=== PATIENT | female | born 1960 | race Caucasian/White ===

== ENCOUNTER 2016-05-01 17:57 | Emergency (ER) | payer BC ==
[2016-05-01 18:02] VITALS: BP 128/72; PULSE 77; RESP 18; TEMP 98; O2SAT 97
--- NOTE | 2016-05-02 10:30 | EDPHY ---
ED Progress Note Narrative: Left without being seen.
== END 2016-05-01 19:09 | disposition left against medical advice (07) ==
LOC: CED 17:57
DX: R10.9 Unspecified abdominal pain (principal); Z53.29 Procedure and treatment not carried out because of patient's decision for other reasons

== ENCOUNTER 2016-05-02 17:38 | Emergency (ER) | payer BC ==
[2016-05-02 17:50] VITALS: RESP 16; TEMP 97.7
--- NOTE | 2016-05-02 18:03 | EDPHY ---
H & P Stated Complaint: Constipation 4 days-Xray CD to be loaded. Time Seen by Provider: 05/02/16 17:51 HPI/ROS: CHIEF COMPLAINT: Left lower quadrant abdominal pain x5 days HISTORY OF PRESENT ILLNESS: 55-year-old female history of multiple abdominal surgeries complaining of 5 days of left lower quadrant abdominal pain. She saw her primary care provider today, had an outpatient x-ray showing extensive stool and went home attempted to enemas with no resolution of symptoms. Positive radiation to back. She has continued complaints of left lower quadrant pain. No nausea or vomiting. No urinary abnormality. No fever or chills. No trauma. No known history of diverticulosis.She has been experiencing daily bowel movements have been normal. No melena or hematochezia. PRIMARY CARE PROVIDER:Dr. Martinez REVIEW OF SYSTEMS: A ten point review of systems was performed and is negative with the exception of the items mentioned in the HPI PAST MEDICAL & SURGICAL HISTORY: Uterine sling, oophorectomy SOCIAL HISTORY: nonsmoker PHYSICAL EXAM (Prior to examination, patient consented to physical exam, hands were washed and my usual and customary physical exam procedures followed) 1) GENERAL: Well-developed, well-nourished, alert and oriented. Appears to be in no acute distress. 2) HEAD: Normocephalic, atraumatic 3) HEENT: Pupils equal, round, reactive to light bilaterally. Sclera anicteric. Nasopharynx, oropharynx, clear, no lesions. 4) NECK: Full range of motion, no meningeal signs. 5) LUNGS: Clear auscultation bilaterally, no wheezes, no rhonchi, no retractions. 6) HEART: Regular rate and rhythm, no murmur, no heave, no gallop. 7) ABDOMEN: No guarding, tender to palpation left lower quadrant, negative McBurney's, negative Soliz's,negative peritoneal sign, 8) MUSCULOSKELETAL: Moving all extremities, no focal areas of tenderness, no obvious trauma. No peripheral edema or discoloration. 9) BACK: No CVA tenderness, no midline vertebral tenderness, no fluctuance, no step-off, no obvious trauma, no visual or palpable abnormality. 10) SKIN: No rash, no petechiae. 11) Psychiatric: Patient is oriented X 3, there is no agitation. DIFFERENTIAL DIAGNOSIS: in no particular include but not limited to bowel obstruction, diverticulitis, diverticular abscess, intestinal perforation, constipation - Personal History Current Tetanus/Diphtheria Vaccine: No Tetanus Vaccine Date: 2008 - Medical/Surgical History Hx Asthma: No Hx Chronic Respiratory Disease: No Hx Diabetes: No Hx Cardiac Disease: No Hx Renal Disease: No Hx Cirrhosis: No Hx Alcoholism: No Hx HIV/AIDS: No Hx Splenectomy or Spleen Trauma: No Other PMH: Bilateral meniscus repair/ bladder lift/oophrectomy/hysterectomy- ovarian cysts - Social History Smoking Status: Never smoked Constitutional: Initial Vital Signs Temperature (C) 36.5 C 05/02/16 17:46 Heart Rate 87 05/02/16 17:46 Respiratory Rate 16 05/02/16 17:46 Blood Pressure 127/100 H 05/02/16 17:46 O2 Sat (%) 94 05/02/16 17:46 O2 Delivery Mode Room Air Allergies/Adverse Reactions: Cephalosporins Allergy (Intermediate, Verified 05/02/16 17:50) Swelling/neck,face,throat Penicillins Allergy (Intermediate, Verified 05/02/16 17:50) Swelling/neck,face,throat Home Medications: Medication Instructions Recorded Hormone Replacement Therapy 1 tab PO DAILY 06/20/11 Multivitamins [Multivitamin (*)] 1 each PO DAILY 06/20/11 Peg 3350/Na Sulf,Bicarb,Cl/KCl 1,000 ml PO ONCE #4000 ml 05/02/16 [Golytely (RX)] Medical Decision Making - Diagnostics Imaging: CT Scan of the Abdomen and Pelvis (With Contrast) 1830 hours History: Abdominal pain and constipation. Decreased appetite. Technique: Axial computed tomographic images of the abdomen and pelvis were obtained with the uneventful intravenous administration of 90 mL Isovue-300 contrast. . Images were reviewed in multiple planes. Dose reduction techniques were utilized. CT Abdomen and Pelvis Findings: Comparison the prior CT study of 06/17/2011. Lung bases: Normal. Liver: Normal. Spleen: Normal. Gallbladder and Bile Ducts: Normal. Pancreas: Normal. Adrenals: Normal. Kidneys: No obstruction or solid masses. Abdominal Aorta: No aneurysm. Pelvic structures: Normal Bladder: Normal. Appendix: Normal. Bowel Loops: Normal. No bowel obstruction, ascites, or significant retroperitoneal lymphadenopathy. Skeletal system: Vertebral body heights are well-maintained. There are no significant lytic or sclerotic osseous lesions. Moderate to marked degenerative disk disease is once again noted more prominent toward the right side of L4-L5 and diffusely at L5-S1. There is moderate disk bulge that is stable at L4-L5 with moderate spinal stenosis and bilateral neural foraminal stenosis. Impression: 1. Normal CT abdomen and pelvis with contrast enhancement. 2. No CT evidence of appendicitis, abscess or bowel obstruction. 3. Stable degenerative disk disease lower lumbar spine. Findings were discussed by telephone with Richie Tucker PA-C at 1900 hrs. Dictated By: Harrison Bonilla MD Images reviewed by myself ED Course/Re-evaluation: 6:03 p.m.: Patient has focal tenderness left lower quadrant. Will evaluate patient for diverticulitis. 7:20 p.m.: Re-evaluation, discussed her CT imaging showing no evidence of diverticulitis. Re-examined her abdomen. Unable to elicit pain on exam at this time. Plan will be discharge with GoLYTELY and my usual and customary abdominal and constipation precautions. In the meantime should she develop new or worsening abdominal pain, should she develop nausea, vomiting or any other symptoms that concern her she needs to return to the ER immediately for re -evaluation. I think that acute surgical abdominal pathology, acute appendicitis, diverticular abscess or perforation, bowel obstruction less than likely in this patient. she has a remote history of oophorectomy, doubt ovarian etiology. - Data Points Laboratory Results: Laboratory Results 05/02/16 18:11 05/02/16 18:11 05/02/16 05/02/16 05/02/16 18:11 18:11 18:10 WBC 6.07 10^3/uL 10^3/uL (3.80-9.50) RBC 4.90 10^6/uL 10^6/uL (4.18-5.33) Hgb 15.0 g/dL g/dL (12.6-16.3) POC Hgb 15.3 gm/dL gm/dL (12.3-15.9) Hct 42.7 % % (38.0-47.0) POC Hct 45 % % (35.5-47.5) MCV 87.1 fL fL (81.5-99.8) MCH 30.6 pg pg (27.9-34.1) MCHC 35.1 g/dL g/dL (32.4-36.7) RDW 12.4 % % (11.5-15.2) Plt Count 315 10^3/uL 10^3/uL (150-400) MPV 9.3 fL fL (8.7-11.7) Neut % (Auto) 58.2 % % (39.3-74.2) Lymph % (Auto) 32.0 % % (15.0-45.0) [place] % (Auto) 6.1 % % (4.5-13.0) Eos % (Auto) 2.5 % % (0.6-7.6) Baso % (Auto) 0.7 % % (0.3-1.7) Nucleat RBC Rel Count 0.0 % % (0.0-0.2) Absolute Neuts (auto) 3.54 10^3/uL 10^3/uL (1.70-6.50) Absolute Lymphs (auto) 1.94 10^3/uL 10^3/uL (1.00-3.00) Absolute Monos (auto) 0.37 10^3/uL 10^3/uL (0.30-0.80) Absolute Eos (auto) 0.15 10^3/uL 10^3/uL (0.03-0.40) Absolute Basos (auto) 0.04 10^3/uL 10^3/uL (0.02-0.10) Absolute Nucleated RBC 0.00 10^3/uL 10^3/uL (0-0.01) Immature Gran % 0.5 % % (0.0-1.1) Immature Gran # 0.03 10^3/uL 10^3/uL (0.00-0.10) POC Sodium 140 mEq/L mEq/L (134-144) Sodium 139 mEq/L mEq/L (134-144) POC Potassium 3.5 mEq/L mEq/L (3.3-5.0) Potassium 3.9 mEq/L mEq/L (3.5-5.2) POC Chloride 102 mEq/L mEq/L (96-108) Chloride 103 mEq/L mEq/L (97-110) Carbon Dioxide 23 mEq/l mEq/l (22-31) Anion Gap 13 mEq/L mEq/L (8-16) POC BUN 10 mg/dL mg/dL (7-23) BUN 10 mg/dL mg/dL (7-23) Creatinine 0.7 mg/dL mg/dL (0.6-1.0) POC Creatinine 0.6 mg/dL mg/dL (0.6-1.2) Estimated GFR > 60 Glucose 94 mg/dL mg/dL (70-100) POC Glucose 96 mg/dL mg/dL (70-100) Calcium 9.8 mg/dL mg/dL (8.5-10.4) Total Bilirubin 0.5 mg/dL mg/dL (0.1-1.4) Conjugated Bilirubin 0.3 mg/dL mg/dL (0.0-0.5) Unconjugated Bilirubin 0.2 mg/dL mg/dL (0.0-1.1) AST 30 IU/L IU/L (14-46) ALT 32 IU/L IU/L (9-52) Alkaline Phosphatase 67 IU/L IU/L (38-126) Total Protein 7.4 g/dL g/dL (6.3-8.2) Albumin 4.7 g/dL g/dL (3.5-5.0) Lipase 140.0 IU/L IU/L (23-300) Medications Given: Discontinued Medications Ibuprofen (Motrin) 600 mg PO EDNOW ONE Stop: 05/02/16 19:10 Last Admin: 05/02/16 19:10 Dose: 600 mg Point of Care Test Results: 05/02/16 18:10 POC Sodium 140 POC Potassium 3.5 POC Chloride 102 POC BUN 10 POC Creatinine 0.6 POC Glucose 96 Departure - Departure Disposition: Home, Routine, Self-Care Clinical Impression: Abdominal pain Qualifiers: Abdominal location: left lower quadrant Qualified Code(s): R10.32 - Left lower quadrant pain Constipation Qualifiers: Constipation type: unspecified constipation type Qualified Code(s): K59.00 - Constipation, unspecified Condition: Good Instructions: Constipation (ED), High Fiber Diet (ED) Additional Instructions: Return to the ER immediately if you develop new or worsening symptoms, if you develop fever, chills, worsening abdominal pain Referrals: Bran Martinez MD [Primary Care Provider] - 1 day without fail Jose Sun MD [Medical Doctor] - 2-3 days, call for appt. (Dr. Jose Sun is a acoustics teacher) Prescriptions: Peg 3350/Na Sulf,Bicarb,Cl/KCl [Golytely (RX)] 1,000 ml PO ONCE #4000 ml
[2016-05-02] MEDS ORDERED: IOPAMIDOL (ISOVUE-300) 100 ML BTL IV ONE (18:21)
[2016-05-02 18:33] LABS: % IMMATURE GRANULYOCYTES 0.5 % (0.0-1.1); ABSOLUTE IMMATURE GRANULOCYTES 0.03 10^3/uL (0.00-0.10); ADD DIFF? NO; ADD MORPH? NO; ADD SCAN? NO; ATYPICAL LYMPHOCYTE FLAG 10 (0-99); FRAGMENT RBC FLAG 0 (0-99); HEMATOCRIT 42.7 % (38.0-47.0); LEFT SHIFT FLG 0 (0-99); LIPEMIA HEMOLYSIS FLAG 90 (0-99); MEAN CELL HEMOGLOBIN 30.6 pg (27.9-34.1); MEAN CELL HEMOGLOBIN CONCENTR. 35.1 g/dL (32.4-36.7); MEAN CELL VOLUME 87.1 fL (81.5-99.8); MEAN PLATELET VOLUME 9.3 fL (8.7-11.7); PLATELET CLUMPS FLAG 0 (0-99); PLATELET COUNT 315 10^3/uL (150-400); RED CELL DISTRIBUTION WIDTH 12.4 % (11.5-15.2)
[2016-05-02 18:36] LABS: ALANINE AMINOTRANSFERASE 32 IU/L (9-52); ALBUMIN 4.7 g/dL (3.5-5.0); ALKALINE PHOSPHATASE 67 IU/L (38-126); ANION GAP 13 mEq/L (8-16); ASPARTATE AMINOTRANSFERASE 30 IU/L (14-46); BILIRUBIN,TOTAL 0.5 mg/dL (0.1-1.4); BILIRUBIN-CONJUGATED 0.3 mg/dL (0.0-0.5); BILIRUBIN-UNCONJUGATED 0.2 mg/dL (0.0-1.1); CALCIUM 9.8 mg/dL (8.5-10.4); CARBON DIOXIDE 23 mEq/l (22-31); CHLORIDE 103 mEq/L (97-110); CREATININE 0.7 mg/dL (0.6-1.0); GLOMERULAR FILTRATION RATE > 60; GLUCOSE 94 mg/dL (70-100); POTASSIUM 3.9 mEq/L (3.5-5.2); SODIUM 139 mEq/L (134-144); TOTAL PROTEIN 7.4 g/dL (6.3-8.2)
[2016-05-02] MEDS ORDERED: IBUPROFEN 600 MG TAB PO ONE ×2 (19:04→19:09)
[2016-05-02 20:18] VITALS: BP 110/70; PULSE 72; O2SAT 98
== END 2016-05-02 20:16 | disposition home or self-care (01) ==
DX: K59.00 Constipation, unspecified (principal); Z90.710 Acquired absence of both cervix and uterus
CPT/HCPCS: 82947-QW; Q9967

== ENCOUNTER 2016-05-06 16:11 | Emergency (ER) | payer BC ==
[2016-05-06 16:30] VITALS: TEMP 97.7
[2016-05-06 17:45] LABS: COLOR COLORLESS; LEUKOCYTE ESTERASE,URINE NEGATIVE (NEGATIVE); NITRITE,URINE NEGATIVE (NEGATIVE)
--- NOTE | 2016-05-06 17:49 | EDPHY ---
H & P Stated Complaint: Recurrent L sided abd pain;eval on Monday for same c/o (see notes) Time Seen by Provider: 05/06/16 17:26 HPI/ROS: CHIEF COMPLAINT: continued left lower quadrant pain HISTORY OF PRESENT ILLNESS: 56-year-old female history of multiple abdominal surgeries including oophorectomy complaining of continued left lower quadrant and intermittent left upper quadrant pain. She had similar complaints of last ER visit which point CT abdomen pelvis with IV contrast was performed which was essentially normal. She was told at her primary care provider visit earlier that day that she was constipated. After emergency department she was given GoLYTELY and has subsequent bowel movement has had continued bowel movements described as small, string like bowel movements. She does note new onset of urinary symptoms in the past 24 hours including urinary hesitancy and left flank pain. No vaginal bleeding or discharge. No fever or chills. No nausea or vomiting. Positive appetite. PRIMARY CARE PROVIDER:Dr. Martinez REVIEW OF SYSTEMS: A ten point review of systems was performed and is negative with the exception of the items mentioned in the HPI PAST MEDICAL & SURGICAL HISTORY: Oophorectomy, uterine sling SOCIAL HISTORY: nonsmoker PHYSICAL EXAM (Prior to examination, patient consented to physical exam, hands were washed and my usual and customary physical exam procedures followed) 1) GENERAL: Well-developed, well-nourished, alert and oriented. Appears to be in no acute distress. smiling, shakes my hand, laughing. 2) HEAD: Normocephalic, atraumatic 3) HEENT: Pupils equal, round, reactive to light bilaterally. Sclera anicteric. 4) NECK: Full range of motion, no meningeal signs. 5) LUNGS: Clear auscultation bilaterally, no wheezes, no rhonchi, no retractions. 6) HEART: Regular rate and rhythm, no murmur, no heave, no gallop. 7) ABDOMEN: No guarding, mild tenderness with very deep palpation left lower quadrant, negative McBurney's, negative Soliz's,negative peritoneal sign, no mass, no hernia 8) MUSCULOSKELETAL: Moving all extremities, no focal areas of tenderness, no obvious trauma. No peripheral edema or discoloration. 9) BACK: No CVA tenderness, no midline vertebral tenderness, no fluctuance, no step-off, no obvious trauma, no visual or palpable abnormality. 10) SKIN: No rash, no petechiae. DIFFERENTIAL DIAGNOSIS: My differential diagnosis includes, but is not limited to, acute appendicitis, bowel obstruction, acute pancreatitis, ovarian torsion, ectopic , gastritis and urinary tract infection. The patient understands that this diagnosis is provisional and can never be 100% accurate. This is a partial list of diagnoses considered. These considerations are based on history, physical exam, past history and reassessment. - Personal History Current Tetanus Diphtheria and Acellular Pertussis (TDAP): Yes Tetanus Vaccine Date: 2008 - Medical/Surgical History Hx Asthma: No Hx Chronic Respiratory Disease: No Hx Diabetes: No Hx Cardiac Disease: No Hx Renal Disease: No Hx Cirrhosis: No Hx Alcoholism: No Hx HIV/AIDS: No Hx Splenectomy or Spleen Trauma: No Other PMH: Bilateral meniscus repair/ bladder lift/oophrectomy/hysterectomy- ovarian cysts - Social History Smoking Status: Never smoked Constitutional: Initial Vital Signs Temperature (C) 36.5 C 05/06/16 16:20 Heart Rate 87 05/06/16 16:20 Respiratory Rate 18 05/06/16 16:20 Blood Pressure 103/88 H 05/06/16 16:20 O2 Sat (%) 98 05/06/16 16:20 O2 Delivery Mode Room Air Allergies/Adverse Reactions: Cephalosporins Allergy (Intermediate, Verified 05/06/16 16:26) Swelling/neck,face,throat Penicillins Allergy (Intermediate, Verified 05/06/16 16:26) Swelling/neck,face,throat Home Medications: Medication Instructions Recorded Hormone Replacement Therapy 1 tab PO DAILY 06/20/11 Medical Decision Making ED Course/Re-evaluation: Patient has been re-evaluated with serial examinations. She was also seen exam by Dr. Radha Kerr in the ER. Doubt UTI, doubt pyelonephritis, doubt acute surgical abdominal pathology, doubt diverticulitis, doubt bowel obstruction, doubt acute appendicitis, doubt ovarian torsion with history of oophorectomy. I do not think that repeat CT imaging currently indicated she had a CT scan performed 4 days ago and currently has abdominal examination which reveals very mild tenderness in left lower quadrant only, normal white blood cell count, patient overall appears well. She is a patient of Dr. Bran Martinez. Plan will be discharge with follow-up information referrals to on-call GI and General surgery. In the meantime usual customary abdominal precautions and instructions provided. She feels comfortable with this plan. I offered prescription for analgesia which she declined - Data Points Laboratory Results: Laboratory Results 05/06/16 17:50 05/06/16 17:50 05/06/16 05/06/16 05/06/16 17:50 17:50 17:50 WBC 5.85 10^3/uL 10^3/uL (3.80-9.50) RBC 4.79 10^6/uL 10^6/uL (4.18-5.33) Hgb 14.8 g/dL g/dL (12.6-16.3) Hct 42.1 % % (38.0-47.0) MCV 87.9 fL fL (81.5-99.8) MCH 30.9 pg pg (27.9-34.1) MCHC 35.2 g/dL g/dL (32.4-36.7) RDW 12.2 % % (11.5-15.2) Plt Count 284 10^3/uL 10^3/uL (150-400) MPV 9.4 fL fL (8.7-11.7) Neut % (Auto) 62.7 % % (39.3-74.2) Lymph % (Auto) 28.0 % % (15.0-45.0) [place] % (Auto) 6.5 % % (4.5-13.0) Eos % (Auto) 1.9 % % (0.6-7.6) Baso % (Auto) 0.7 % % (0.3-1.7) Nucleat RBC Rel Count 0.0 % % (0.0-0.2) Absolute Neuts (auto) 3.67 10^3/uL 10^3/uL (1.70-6.50) Absolute Lymphs (auto) 1.64 10^3/uL 10^3/uL (1.00-3.00) Absolute Monos (auto) 0.38 10^3/uL 10^3/uL (0.30-0.80) Absolute Eos (auto) 0.11 10^3/uL 10^3/uL (0.03-0.40) Absolute Basos (auto) 0.04 10^3/uL 10^3/uL (0.02-0.10) Absolute Nucleated RBC 0.00 10^3/uL 10^3/uL (0-0.01) Immature Gran % 0.2 % % (0.0-1.1) Immature Gran # 0.01 10^3/uL 10^3/uL (0.00-0.10) Sodium 140 mEq/L mEq/L (134-144) Potassium 3.8 mEq/L mEq/L (3.5-5.2) Chloride 106 mEq/L mEq/L (97-110) Carbon Dioxide 21 mEq/l L mEq/l (22-31) Anion Gap 13 mEq/L mEq/L (8-16) BUN 10 mg/dL mg/dL (7-23) Creatinine 0.7 mg/dL mg/dL (0.6-1.0) Estimated GFR > 60 Glucose 84 mg/dL mg/dL (70-100) Calcium 10.0 mg/dL mg/dL (8.5-10.4) Total Bilirubin 0.5 mg/dL mg/dL (0.1-1.4) Conjugated Bilirubin 0.3 mg/dL mg/dL (0.0-0.5) Unconjugated Bilirubin 0.2 mg/dL mg/dL (0.0-1.1) AST 24 IU/L IU/L (14-46) ALT 31 IU/L IU/L (9-52) Alkaline Phosphatase 69 IU/L IU/L (38-126) Total Protein 7.4 g/dL g/dL (6.3-8.2) Albumin 4.6 g/dL g/dL (3.5-5.0) Lipase 122.0 IU/L IU/L (23-300) Beta HCG, Qual NEGATIVE Urine Color Urine Appearance Urine pH Ur Specific [place] Urine Protein Urine Ketones Urine Blood Urine Nitrate Urine Bilirubin Urine Urobilinogen Ur Leukocyte Esterase Urine RBC Urine WBC Ur Epithelial Cells Urine Glucose 05/06/16 16:30 WBC RBC Hgb Hct MCV MCH MCHC RDW Plt Count MPV Neut % (Auto) Lymph % (Auto) [place] % (Auto) Eos % (Auto) Baso % (Auto) Nucleat RBC Rel Count Absolute Neuts (auto) Absolute Lymphs (auto) Absolute Monos (auto) Absolute Eos (auto) Absolute Basos (auto) Absolute Nucleated RBC Immature Gran % Immature Gran # Sodium Potassium Chloride Carbon Dioxide Anion Gap BUN Creatinine Estimated GFR Glucose Calcium Total Bilirubin Conjugated Bilirubin Unconjugated Bilirubin AST ALT Alkaline Phosphatase Total Protein Albumin Lipase Beta HCG, Qual Urine Color COLORLESS Urine Appearance CLEAR Urine pH 7.0 (5.0-7.5) Ur Specific [place] 1.002 (1.002-1.030) Urine Protein NEGATIVE (NEGATIVE) Urine Ketones NEGATIVE (NEGATIVE) Urine Blood NEGATIVE (NEGATIVE) Urine Nitrate NEGATIVE (NEGATIVE) Urine Bilirubin NEGATIVE (NEGATIVE) Urine Urobilinogen NEGATIVE EU EU (0.2-1.0) Ur Leukocyte Esterase NEGATIVE (NEGATIVE) Urine RBC 1-3 /hpf /hpf (0-3) Urine WBC 1-3 /hpf /hpf (0-3) Ur Epithelial Cells TRACE /lpf /lpf (NONE-1+) Urine Glucose NEGATIVE (NEGATIVE) Departure - Departure Disposition: Home, Routine, Self-Care Clinical Impression: Abdominal pain Qualifiers: Abdominal location: left lower quadrant Qualified Code(s): R10.32 - Left lower quadrant pain Condition: Good Instructions: Acute Abdominal Pain (ED) Additional Instructions: Seek immediate medical attention if you develop new or worsening symptoms, if you develop fevers, chills, inability to tolerate oral intake or any other symptoms that concerns you. Referrals: Bran Martinez MD [Primary Care Provider] - 05/09/16 Rico Yeung MD [Medical Doctor] - 05/09/16 (Dr. Rico Yeung is a set staff fitter ) Gerald Concepcion MD [Medical Doctor] - 05/09/16 (Dr Concepcion is a surgeon)
[2016-05-06 18:12] LABS: % IMMATURE GRANULYOCYTES 0.2 % (0.0-1.1); ABSOLUTE IMMATURE GRANULOCYTES 0.01 10^3/uL (0.00-0.10); ADD DIFF? NO; ADD MORPH? NO; ADD SCAN? NO; ATYPICAL LYMPHOCYTE FLAG 0 (0-99); FRAGMENT RBC FLAG 0 (0-99); HEMATOCRIT 42.1 % (38.0-47.0); HEMOGLOBIN 14.8 g/dL (12.6-16.3); LEFT SHIFT FLG 0 (0-99); LIPEMIA HEMOLYSIS FLAG 90 (0-99); MEAN CELL HEMOGLOBIN 30.9 pg (27.9-34.1); MEAN CELL HEMOGLOBIN CONCENTR. 35.2 g/dL (32.4-36.7); MEAN CELL VOLUME 87.9 fL (81.5-99.8); MEAN PLATELET VOLUME 9.4 fL (8.7-11.7); PLATELET CLUMPS FLAG 0 (0-99); PLATELET COUNT 284 10^3/uL (150-400); RED BLOOD CELL COUNT 4.79 10^6/uL (4.18-5.33); RED CELL DISTRIBUTION WIDTH 12.2 % (11.5-15.2)
[2016-05-06 18:30] LABS: ALANINE AMINOTRANSFERASE 31 IU/L (9-52); ALBUMIN 4.6 g/dL (3.5-5.0); ALKALINE PHOSPHATASE 69 IU/L (38-126); ANION GAP 13 mEq/L (8-16); ASPARTATE AMINOTRANSFERASE 24 IU/L (14-46); BILIRUBIN,TOTAL 0.5 mg/dL (0.1-1.4); BILIRUBIN-CONJUGATED 0.3 mg/dL (0.0-0.5); BILIRUBIN-UNCONJUGATED 0.2 mg/dL (0.0-1.1); CARBON DIOXIDE 21 mEq/l (22-31); CHLORIDE 106 mEq/L (97-110); CREATININE 0.7 mg/dL (0.6-1.0); GLOMERULAR FILTRATION RATE > 60; GLUCOSE 84 mg/dL (70-100); POTASSIUM 3.8 mEq/L (3.5-5.2); SODIUM 140 mEq/L (134-144); TOTAL PROTEIN 7.4 g/dL (6.3-8.2)
[2016-05-06 19:15] VITALS: BP 111/88; PULSE 86; RESP 16; O2SAT 97
== END 2016-05-06 19:15 | disposition home or self-care (01) ==
DX: R10.32 Left lower quadrant pain (principal)

== ENCOUNTER → 2016-10-12 | Outpatient (CLI) | payer BC | LOC: FIMAGING 10:37 | PROVIDERS: ATTEND Physician Assistant | DX: J40 Bronchitis, not specified as acute or chronic (principal) ==

== ENCOUNTER → 2017-12-22 | Outpatient (CLI) | payer OTHER | LOC: FIMAGING 12:49 | PROVIDERS: ATTEND Obstetrics & Gynecology | DX: N63.22 Unspecified lump in the left breast, upper inner quadrant (principal) ==